=== PATIENT | male | born 1990 | race Caucasian/White ===

== ENCOUNTER 2023-10-28 19:40 | Emergency (ER) | payer BC, SELFPAY ==
[2023-10-28 19:45] VITALS: BP 138/88
--- NOTE | 2023-10-28 22:24 | ED.GENMED ---
History of Present Illness
General
Chief Complaint: Back Pain
Source: patient
Exam Limitations: none
Time Seen by Provider: 10/28/23 22:03
Nursing documentation reviewed up to this point in time: agreed with
Travel History
Have you had any contact with someone who has COVID-19?: No
Do you have any symptoms of coronavirus? Fever > 100 degrees, chills, cough, shortness of breath, sore throat, loss of taste or smell, muscle aches, or headache?: No
History of Present Illness
History of Present Illness:
The patient is a pleasant 33-year-old man who comes in with complaints of spasming in his left lower back with radiation of pain into the left buttock and down the side of his left thigh. Patient denies weakness and numbness of the legs. He
reports he was recently lifting weights while doing lunging yesterday which is unusual for him. The pain started today. Patient reports that he could walk but he feels hunched over and has pain in his left thigh area.
Past History
Past History
ED Past Medical History: None
ED Past Surgical History: None
Social History
Tobacco: Non-smoker
Alcohol: Other
Drug: None
Personal:
Living: with family
Employment: Employed
Family History
Family History: Other
Review of Systems
Review of Systems
Allergies reviewed?: Yes
Other source history: family
All Other Systems: ROS reviewed and negative except as documented in HPI and ROS
Constitutional: Reports no symptoms
EENT: Reports no symptoms
Respiratory: Reports no symptoms
Cardiac: Reports no symptoms
ABD/GI: Reports no symptoms
: Reports no symptoms
Musculoskeletal: Reports muscle pain, muscle stiffness and back pain
Skin: Reports no symptoms
Neurological: Reports no symptoms
Endocrine: Reports no symptoms
Hematologic/Lymphatic: Reports no symptoms
Psychiatric: Reports no symptoms
Phy Exam
Physical Exam
Physical Exam:
Physical Exam
General: no apparent distress, not acutely ill
Neck: supple. Nontender
Heart: s1/s2 regular rate and rhythm, no murmur. equal radial pulses.
Lungs: no acute respiratory distress. clear bilaterally
Abdomen: Soft, nontender, no pulsatile mass. No vertebral spine tenderness. Left para sacral tenderness without erythema or deformity
Neuro: alert and oriented. no focal neurological deficits. 5 out of 5 strength in all extremities. No saddle anesthesia
Skin: no rash
Psychiatric: well kept. interactive and cooperative
Extremities: no edema. No calf tenderness. Negative Homans' sign.
Course
Orders/Labs/Results
Orders:
Orders
10/28/23 22:33
Diazepam [Valium] 5 mg PO NOW STA
Prednisone [Deltasone] 40 mg PO NOW STA
Vital Signs
Initial and Last Documented VS:
Initial Vital Signs
Temp Pulse Resp BP Pulse Ox
98.9 F 87 16 138/88 99
10/28/23 19:45 10/28/23 19:45 10/28/23 19:45 10/28/23 19:45 10/28/23 19:45
Last Documented Vital Signs
Temp Pulse Resp BP Pulse Ox
98.9 F 87 16 138/88 99
10/28/23 19:45 10/28/23 19:45 10/28/23 19:45 10/28/23 19:45 10/28/23 19:45
MDM/Problems Addressed
Differential Diagnosis Includes:
Muscle spasm, herniated disc, lumbar radiculopathy
MDM/Problems Addressed:
Patient presents with acute left-sided back pain
Acute Exacerbation and/or Progression of Chronic Illness:
Patient is acutely hypertensive, however, this is likely due to pain
Acute Exacerbation and/or Progression of Chronic Illness: HTN
*Pulse Oximetry
Patient hypoxic: no
*EKG
Interpreted by ED Provider?: NA
*Senior Estimator Interpretation
Rate: Senior Estimator- N/A
*Critical Care Note
Total Time (30-74mins, 75-104mins- exclusive of procedures): Not Applicable
Patient Management
Social determinants of health affecting care: Living situation and Strong social support
Escalation/DeEscalation of care consider admission/obs:
Patient is neurovascularly intact. There is no sign of cauda equina.
ED Attending Note
-
Portions of this chart may have been created with voice recognition software.� Occasional wrong word or��sound alike� substitutions may have occurred due to the inherent limitations of voice recognition software.
Discharge Plan
Departure
Patient Disposition: Home (Routine Discharge)
Date of Disposition: 10/28/23
Time of Disposition: 22:34
Patient with high blood pressure during this ER visit?: Yes
Condition: Good
Discharge Problem:
Low back pain
Instructions: Low Back Pain (DC), Radiculopathy (DC), BLOOD PRESSURE
Prescriptions:
New
diazepam [Valium] 5 mg tablet
5 mg PO BID PRN (Reason: muscle spasm) Qty: 7 0RF
prednisone 10 mg tablet
10 mg PO DAILY Qty: 12 0RF
Rx Instructions:
Take 3 tablets on day 1 and 2
Take 2 tablets on day 3 and 4
Take 1 tablet on day 5 and 6
Referrals:
Kashif Dey MD [Family Provider] -
Activity Restrictions/Additional Instructions:
Please continue the steroid (Prednisone) as prescribed. Please take 600 mg of Advil/Motrin every 6-8 hours with food for the next 2 to 3 days to help with the muscle spasm and nerve inflammation. If the tightness/spasming becomes severe, you can
also take the Valium
Interventions
Interventions:
*Risk Screen - Suicide Last Done: 10/28/23 19:45
*General Assessment Last Done: 10/28/23 19:45
*Neglect/Abuse Screening Last Done: 10/28/23 19:45
Discharge Date and Time
Print Language: TONGAN
[2023-10-28] MEDS: DELTASONE 40 MG PO (22:52)
[2023-10-28] MEDS: VALIUM 5 MG PO (22:53)
== END 2023-10-28 23:00 | disposition home or self-care (01) ==
LOC: EMR 19:40
PROVIDERS: EMERGENCY PHYSICIAN Emergency Medicine; FAMILY PHYSICIAN Family Medicine
DX: M54.50 Low back pain, unspecified (principal); M79.652 Pain in left thigh; M62.830 Muscle spasm of back; M79.18 Myalgia, other site; R03.0 Elevated blood-pressure reading, without diagnosis of hypertension
CPT/HCPCS: 99283